=== PATIENT | male | born 1965 | race American Indian/Alaskan Native ===

== ENCOUNTER 2017-02-21 10:03 | Outpatient (CLI) | payer OTHER ==
--- NOTE | 2017-02-26 07:49 | Vascular Lab Report ---
CAROTID DUPLEX STUDY: RIGHT PSVEDV CCA PROX:[id number] CCA DIST:[id number] ICA PROX: [id number] ICA MID: 6729 ICA DIST: 6123 ECA: 95 VERT: 56 23 LEFT PSVEDV CCA PROX:[id number] CCA DIST: 8431 ICA PROX: 7232 ICA MID: 6930 ICA DIST: 5326 ECA: 107 VERT: 19 5 REASON FOR EXAM: Carotid artery stenosis. COMMENTS ON THE RIGHT: Doppler frequency analysis is consistent with 16 to 49 percent diameter reduction of the internal carotid artery. Minimal amount of plaque is seen. The common carotid artery is patent. The external carotid artery is patent. The vertebral artery has antegrade flow. COMMENTS ON THE LEFT: Doppler frequency analysis is consistent with 16 to 49 percent diameter reduction of the internal carotid artery. Minimal amount of plaque is seen. The common carotid artery is patent. The external carotid artery is patent. The vertebral artery has antegrade flow. IMPRESSION: Less than 50% diameter reduction in the internal carotid arteries bilaterally. Consider repeat carotid artery duplex in 12 months.
== END 2017-02-21 10:04 | disposition home or self-care (01) ==
LOC: VAS 10:03
PROVIDERS: ATTEND Internal Medicine
DX: I65.23 Occlusion and stenosis of bilateral carotid arteries (principal); I10 Essential (primary) hypertension; R51 Headache
CPT/HCPCS: 93880